=== PATIENT | male | born 1950 | race African-American/Black ===

== ENCOUNTER 2022-11-23 08:19 | Inpatient (IN) | payer MEDICARE ==
[~2022-11-23] VITALS: Ht 170.2 cm; Wt 102.5 kg
[2022-11-23] VITALS (8 sets, daily range): BP systolic 135–145; BP diastolic 63–90; PULSE 52–84; RESP 17–22; TEMP 97.8–98.8; O2SAT 97–100
[2022-11-23] MEDS ORDERED: SODIUM CHLORIDE 0.9% 1000ML 1,000 ML IV STA (08:35)
[2022-11-23 09:01] LABS: BASOPHILS % 0.2 % (0.0-1.0); EOSINOPHILS # (AUTO) 0.1 (0.0-0.4); EOSINOPHILS % 0.7 % (0.0-6.0); HEMATOCRIT 40.3 % (38.2-49.6); HEMOGLOBIN 13.4 g/dL (14.0-18.0); LYMPHOCYTES # (AUTO) 2.3 (1.0-3.2); LYMPHOCYTES % 21.6 % (18.0-39.1); MEAN CORPUSCULAR HEMOGLOBIN 30.9 pg (28-32); MEAN CORPUSCULAR HGB CONC 33.3 g/dL (31-35); MEAN CORPUSCULAR VOLUME 93.1 fL (81-99); MONOCYTES # (AUTO) 1.2 (0.2-0.8); MONOCYTES % 10.7 % (4.4-11.3); NEUTROPHILS # (AUTO) 7.2 (2.1-6.9); NEUTROPHILS % 66.5 % (38.7-80.0); PLATELET COUNT 205 x10e3/uL (140-360); RED BLOOD COUNT 4.33 x10e6/uL (4.3-5.7)
[2022-11-23 09:04] LABS: CLARITY,URINE CLOUDY (CLEAR); COLOR,URINE RED (YELLOW); KETONES,URINE 1+ (NEGATIVE); LEUKOCYTE ESTERASE ,URINE LARGE (NEGATIVE); NITRITE,URINE POSITIVE (NEGATIVE); PROTEIN,URINE DIPSTICK >=300 (NEGATIVE)
[2022-11-23 09:14] LABS: INR 0.95; PROTHROMBIN TIME 13.2 seconds (11.9-14.5)
[2022-11-23 09:15] LABS: PARTIAL THROMBOPLASTIN TIME 28.1 seconds (23.8-35.5)
[2022-11-23 09:22] LABS: BACTERIA,URINE MANY /HPF; EPITHELIAL CELLS,URINE RARE /LPF; RBC,URINE >50 /HPF (0-5); WBC,URINE (MAN) >50 /HPF (0-5)
[2022-11-23 09:25] LABS: ALBUMIN 3.6 g/dL (3.5-5.0); ALBUMIN/GLOBULIN RATIO 0.9 (0.8-2.0); ANION GAP 13.7 mmol/L (8-16); CALCIUM 9.7 mg/dL (8.4-10.2); CREATININE, SERUM 1.01 mg/dL (0.72-1.25); POTASSIUM 3.7 mmol/L (3.5-5.1)
[2022-11-23] MEDS ORDERED: IOPAMIDOL 370 MG/ML 100 ML INFUS..BTL INJ ONE (09:29)
[2022-11-23] MEDS ORDERED: SODIUM CHLORIDE 0.9% 250ML 250 ML ONE (09:29)
[2022-11-23] MEDS ORDERED: Vancomycin IV 1 GM in SODIUM CHLORIDE 0.9% 250ML 250 ML IV ONE (11:00)
[2022-11-23] MEDS ORDERED: Morphine 2mg Syringe 2 MG/ML SYR IV PRN (11:15)
[2022-11-23] MEDS ORDERED: ONDANSETRON HCL INJ 2MG/ML 2ML 2 MG/ML VIAL IV PRN (11:15)
[2022-11-23] MEDS: SODIUM CHLORIDE 0.9% 1000ML 1,000 ML IV SCH ×2 (11:30→20:31)
[2022-11-23] MEDS ORDERED: FLOMAX0.4 MG PO (13:39)
[2022-11-23] MEDS ORDERED: BENICAR20 MG PO (13:39)
[2022-11-23] MEDS ORDERED: HYDROCHLOROTH12.5 MG PO (13:39)
[2022-11-23] MEDS ORDERED: CRESTOR10 MG PO (13:39)
[2022-11-23] MEDS ORDERED: FINASTERIDE5 MG PO (13:39)
[2022-11-23] MEDS ORDERED: METFORMIN HCL500 MG PO (13:39)
[2022-11-23] MEDS ORDERED: PNEUMOCOCCAL VACCINE POLYVALENT 23 MCG/0.5 ML VIAL IM SCH (14:00)
[2022-11-23] MEDS ORDERED: LIDOCAINE 4% PATCH TP PRN (15:30)
[2022-11-23] MEDS ORDERED: DIPHENHYDRAMINE HCL 25 MG CAP PO PRN (15:30)
[2022-11-23] MEDS ORDERED: ALBUTEROL/IPRATROPIUM 3 ML NEB NEB PRN (15:30)
[2022-11-23] MEDS ORDERED: DEXTROSE 50% SYRINGE 50 ML IV PRN ×2 (15:30)
[2022-11-23] MEDS ORDERED: SIMETHICONE 80 MG CHEW PO PRN (15:30)
[2022-11-23] MEDS ORDERED: DOCUSATE SODIUM 100 MG CAP PO PRN (15:30)
[2022-11-23] MEDS ORDERED: MELATONIN 5 MG TABLET PO PRN (15:30)
[2022-11-23] MEDS ORDERED: ACETAMINOPHEN 325 MG TAB PO PRN (15:30)
[2022-11-23] MEDS ORDERED: HYDRALAZINE HCL 20 MG/ML VIAL IV PRN (15:30)
[2022-11-23] MEDS ORDERED: POTASSIUM CHLORIDE 20 MEQ TAB CR PO PRN (15:30)
[2022-11-23] MEDS: INSULIN LISPRO 100 UNIT/1 ML 3ML VIAL SQ SCH ×2 (16:08→20:37)
[2022-11-23] MEDS: SIMVASTATIN 20 MG TAB PO SCH (20:32)
[2022-11-24] VITALS (12 sets, daily range): BP systolic 114–175; BP diastolic 58–90; PULSE 50–92; RESP 17–19; TEMP 97.2–98.5; O2SAT 96–100
[2022-11-24 05:34] LABS: BASOPHILS % 0.4 % (0.0-1.0); EOSINOPHILS # (AUTO) 0.1 (0.0-0.4); EOSINOPHILS % 1.3 % (0.0-6.0); HEMATOCRIT 38.7 % (38.2-49.6); HEMOGLOBIN 12.4 g/dL (14.0-18.0); LYMPHOCYTES # (AUTO) 2.5 (1.0-3.2); MEAN CORPUSCULAR HEMOGLOBIN 30.7 pg (28-32); MEAN CORPUSCULAR VOLUME 95.8 fL (81-99); MONOCYTES # (AUTO) 1.3 (0.2-0.8); MONOCYTES % 12.8 % (4.4-11.3); NEUTROPHILS # (AUTO) 6.2 (2.1-6.9); NEUTROPHILS % 60.8 % (38.7-80.0); PLATELET COUNT 179 x10e3/uL (140-360); RED BLOOD COUNT 4.04 x10e6/uL (4.3-5.7)
[2022-11-24 05:57] LABS: ALBUMIN 2.8 g/dL (3.5-5.0); ALBUMIN/GLOBULIN RATIO 0.9 (0.8-2.0); ANION GAP 10.7 mmol/L (8-16); CALCIUM 8.4 mg/dL (8.4-10.2); CREATININE, SERUM 0.81 mg/dL (0.72-1.25); POTASSIUM 3.7 mmol/L (3.5-5.1)
[2022-11-24] MEDS: FINASTERIDE 5 MG TAB PO SCH (08:27)
[2022-11-24] MEDS: TAMSULOSIN HCL 0.4 MG CAP PO SCH (08:27)
[2022-11-24] MEDS: PANTOPRAZOLE SOD 40 MG TABEC PO SCH (08:27)
[2022-11-24] MEDS: OLMESARTAN 20 MG TAB PO SCH (08:28)
[2022-11-24] MEDS: INSULIN LISPRO 100 UNIT/1 ML 3ML VIAL SQ SCH ×4 (08:33→20:21)
[2022-11-24] MEDS: SIMVASTATIN 20 MG TAB PO SCH (20:19)
[2022-11-25] VITALS (11 sets, daily range): BP systolic 124–147; BP diastolic 66–88; PULSE 47–93; RESP 16–20; TEMP 97.4–98.3; O2SAT 95–100
[2022-11-25] MEDS: PANTOPRAZOLE SOD 40 MG TABEC PO SCH (08:29)
[2022-11-25] MEDS: FINASTERIDE 5 MG TAB PO SCH (08:29)
[2022-11-25] MEDS: TAMSULOSIN HCL 0.4 MG CAP PO SCH (08:29)
[2022-11-25] MEDS: SIMVASTATIN 20 MG TAB PO SCH (08:29)
[2022-11-25] MEDS: INSULIN LISPRO 100 UNIT/1 ML 3ML VIAL SQ SCH ×4 (08:36→21:11)
[2022-11-25] MEDS: OLMESARTAN 20 MG TAB PO SCH (08:37)
[2022-11-25] MEDS ORDERED: ENOXAPARIN SOD INJ 40 MG/0.4 ML SYR SC SCH (17:00)
[2022-11-26] VITALS: BP 126/62; PULSE 64; RESP 17; TEMP 97.9; O2SAT 100
[2022-11-26 04:00] VITALS: BP 145/84; PULSE 92; RESP 18; TEMP 98.5; O2SAT 100
[2022-11-26 05:01] LABS: BASOPHILS % 0.4 % (0.0-1.0); EOSINOPHILS # (AUTO) 0.2 (0.0-0.4); EOSINOPHILS % 1.9 % (0.0-6.0); HEMATOCRIT 36.9 % (38.2-49.6); LYMPHOCYTES # (AUTO) 3.9 (1.0-3.2); LYMPHOCYTES % 34.6 % (18.0-39.1); MEAN CORPUSCULAR HEMOGLOBIN 31.1 pg (28-32); MEAN CORPUSCULAR HGB CONC 32.5 g/dL (31-35); MEAN CORPUSCULAR VOLUME 95.6 fL (81-99); MONOCYTES # (AUTO) 1.1 (0.2-0.8); MONOCYTES % 9.8 % (4.4-11.3); NEUTROPHILS % 52.6 % (38.7-80.0); PLATELET COUNT 206 x10e3/uL (140-360); RED BLOOD COUNT 3.86 x10e6/uL (4.3-5.7)
[2022-11-26 05:16] LABS: ANION GAP 10.6 mmol/L (8-16); CALCIUM 9.1 mg/dL (8.4-10.2); CREATININE, SERUM 0.93 mg/dL (0.72-1.25); POTASSIUM 3.6 mmol/L (3.5-5.1)
[2022-11-26] MEDS: INSULIN LISPRO 100 UNIT/1 ML 3ML VIAL SQ SCH (07:30)
[2022-11-26 09:22] VITALS: BP 157/76; PULSE 54; RESP 18; TEMP 98.7; O2SAT 98
[2022-11-26] MEDS: TAMSULOSIN HCL 0.4 MG CAP PO SCH (09:36)
[2022-11-26] MEDS: OLMESARTAN 20 MG TAB PO SCH (09:36)
[2022-11-26] MEDS: PANTOPRAZOLE SOD 40 MG TABEC PO SCH (09:36)
[2022-11-26] MEDS: FINASTERIDE 5 MG TAB PO SCH (09:36)
[2022-11-26 10:59] VITALS: PULSE 57; RESP 16; O2SAT 97
[2022-11-26 12:05] VITALS: BP 133/95; PULSE 50; RESP 16; TEMP 98.9; O2SAT 100
[2022-11-26] MEDS ORDERED: ONDANSETRON HCL 4 MG ORAL DISINTEGRATING TAB PO PRN (12:30)
== END 2022-11-26 12:57 | disposition home or self-care (01) | DRG 872 ==
LOC: ER 08:24 → ERHOLD 11:12 → MED/SURG2 12:30
PROVIDERS: ADMIT Internal Medicine; ATTEND Internal Medicine
DX: A41.9 Sepsis, unspecified organism (principal); N41.9 Inflammatory disease of prostate, unspecified; N40.0 Benign prostatic hyperplasia without lower urinary tract symptoms; E78.5 Hyperlipidemia, unspecified; E11.8 Type 2 diabetes mellitus with unspecified complications; I10 Essential (primary) hypertension; B96.89 Other specified bacterial agents as the cause of diseases classified elsewhere; N30.80 Other cystitis without hematuria; Z20.822 Contact with and (suspected) exposure to COVID-19; Z79.84 Long term (current) use of oral hypoglycemic drugs
CPT/HCPCS: 0223U; 36415; 74178; 80048; 80053; 81001; 82948; 83036; 83735; 85025; 85610; 85730; 87086; 87186; 94799; 96372; 99284; J1650; J2185; J7030; J7050; Q9967